=== PATIENT | female | born 1975 | race Caucasian/White ===

== ENCOUNTER 2016-10-18 15:32 | Inpatient (IN) | payer MEDICARE ==
[~2016-10-18] VITALS: Ht 167.6 cm; Wt 85.7 kg
[2016-10-18 20:18] LABS: HEMOGLOBIN 13.2 gm/dl (12.3-15.3); RED BLOOD COUNT 4.25 M/UL (4.00-5.10); WHITE BLOOD COUNT 15.4 K/UL (4.5-11.0)
[2016-10-18 20:34] LABS: BUN/CREATININE RATIO 10 (0-10)
[2016-10-19] MEDS ORDERED: IBUPROFEN800 MG PO (11:22)
[2016-10-19] MEDS ORDERED: BUPRENORPHIN-N1 EACH SL (11:22)
[2016-10-19] MEDS ORDERED: VISTARIL 50 MG50 MG PO (11:23)
[2016-10-19] MEDS ORDERED: NEURONTIN 400400 MG PO (11:23)
[2016-10-19] MEDS ORDERED: CYMBALTA 30 MG30 MG PO (11:29)
[2016-10-19] MEDS ORDERED: CLARITIN 10MG T10 MG PO (11:29)
[2016-10-19] MEDS ORDERED: CYMBALTA30 MG PO (11:29)
[2016-10-19] MEDS ORDERED: AMOXICILLIN500 MG PO (11:30)
[2016-10-20 08:57] LABS: BUN/CREATININE RATIO 18 (0-10)
[2016-10-21 05:37] LABS: HEMOGLOBIN 11.9 gm/dl (12.3-15.3); RED BLOOD COUNT 3.9 M/UL (4.00-5.10)
[2016-10-21 05:38] LABS: WHITE BLOOD COUNT 6.9 K/UL (4.5-11.0)
[2016-10-21 06:02] LABS: BUN/CREATININE RATIO 17 (0-10)
[2016-10-21] MEDS ORDERED: DOXYCYCLINE HY100 MG PO (16:03)
[2017-02-14] MEDS ORDERED: FERROUS SULFAT325 M2 PO (12:12)
[2017-02-14] MEDS ORDERED: CLEOCIN HCL300 MG PO (12:13)
[2017-02-14] MEDS ORDERED: ACIDOPHILUS LACT1 GM MC (12:14)
== END 2016-10-21 17:30 | disposition home or self-care (01) | DRG 571 ==
LOC: ER1 15:32 → ZEROF 22:14 → MED SURG 4 10-19 14:38
PROVIDERS: Hospitalist; Orthopaedic Surgery; Student in an Organized Health Care Education/Training Program; ADMIT Internal Medicine
PROC: 0JBG0ZZ Excision of Right Lower Arm Subcutaneous Tissue and Fascia, Open Approach (ICD-10-PCS; principal; 2016-10-19 17:30)
DX: L02.413 Cutaneous abscess of right upper limb (principal); I96 Gangrene, not elsewhere classified; L03.113 Cellulitis of right upper limb; F15.10 Other stimulant abuse, uncomplicated; F19.10 Other psychoactive substance abuse, uncomplicated; F41.9 Anxiety disorder, unspecified; Z88.6 Allergy status to analgesic agent; Z88.8 Allergy status to other drugs, medicaments and biological substances; Z79.2 Long term (current) use of antibiotics; Z79.1 Long term (current) use of non-steroidal anti-inflammatories (NSAID); Z79.891 Long term (current) use of opiate analgesic; Z79.899 Other long term (current) drug therapy
CPT/HCPCS: 36415; 73080; 80048; 80053; 80202; 81001; 83605; 84703; 85025; 85027; 86140; 87040; 87070; 87086; 87205; 96365; 96375; 96376; 99284; J1335; J1885; J2250; J2270; J3010; J3370; J7050; J7070; J7120; Q0177

== ENCOUNTER 2020-04-29 02:12 | Emergency (ER) | payer OTHER ==
[~2020-04-29 02:12] MED LIST: ACIDOPHILUS LACT1 GM MC; AMOXICILLIN500 MG PO; AUGMENTIN 875-1 EACH PO; BACTROBAN OINT22 GM EXT; BUPRENORPHIN-N1 EACH SL; CATAPRES 0.1MG0.1 MG PO; CELEBREX100 MG PO; CELEBREX200 MG PO; CLARITIN 10MG T10 MG PO; CLEOCIN HCL300 MG PO; CYCLOBENZAPRINE5 MG PO; CYMBALTA 30 MG30 MG PO; CYMBALTA30 MG PO; DOXYCYCLINE HY100 MG PO; FERROUS SULFAT325 M2 PO; IBUPROFEN600 MG PO; IBUPROFEN800 MG PO; LORTAB 5-325 M1 EACH PO; MEDROL4 MG PO; NEURONTIN800 MG PO; PERCOCET 5/325 T1 EA PO; PRINIVIL10 MG PO; PROTONIX40 MG PO; PROVENTIL HFA6.7 GM INH; PROZAC40 MG PO; REMERON45 M1 PO; VIBRAMYCIN100 MG PO; VISTARIL 50 MG50 MG PO
[2020-04-29] MEDS ORDERED: ENDOCET 5-3251 EACH PO (03:10)
== END 2020-04-29 03:35 | disposition home or self-care (01) ==
LOC: ER1 02:12
DX: M47.816 Spondylosis without myelopathy or radiculopathy, lumbar region (principal)
CPT/HCPCS: 99283

== ENCOUNTER 2020-05-13 20:46 | Emergency (ER) | payer OTHER ==
[~2020-05-13 20:46] MED LIST changes: +ENDOCET 5-3251 EACH PO
== END 2020-05-14 01:15 | disposition home or self-care (01) ==
LOC: ER1 20:46
DX: M25.552 Pain in left hip (principal); M54.5 Low back pain; F17.200 Nicotine dependence, unspecified, uncomplicated; Z86.19 Personal history of other infectious and parasitic diseases
CPT/HCPCS: 96372; 99283; J2270; J2550

== ENCOUNTER 2020-05-20 11:40 | Emergency (ER) | payer OTHER ==
[2020-05-20] MEDS ORDERED: CYCLOBENZAPRINE10 MG PO (12:53)
[2020-05-20] MEDS ORDERED: PREDNISONE50 MG PO (12:53)
== END 2020-05-20 13:40 | disposition home or self-care (01) ==
LOC: ER1 11:40
DX: M54.42 Lumbago with sciatica, left side (principal); J44.9 Chronic obstructive pulmonary disease, unspecified; F17.200 Nicotine dependence, unspecified, uncomplicated; Z86.19 Personal history of other infectious and parasitic diseases
CPT/HCPCS: 96372; 99283; J1100; J1885

== ENCOUNTER 2020-05-21 17:09 | Emergency (ER) | payer OTHER ==
[~2020-05-21 17:09] MED LIST changes: -NORFLEX 100 MG100 MG PO; -TORADOL 10 MG T10 MG PO
[2020-05-21 18:46] LABS: RED BLOOD COUNT 4.11 M/UL (4.00-5.10); WHITE BLOOD COUNT 20.4 K/UL (4.5-11.0)
[2020-05-21 18:59] LABS: BUN/CREATININE RATIO 25 (0-10)
== END 2020-05-22 11:38 | disposition short-term general hospital (02) ==
LOC: ER1 17:09
PROVIDERS: Nurse Practitioner
DX: M47.816 Spondylosis without myelopathy or radiculopathy, lumbar region (principal); F19.90 Other psychoactive substance use, unspecified, uncomplicated; I10 Essential (primary) hypertension; J44.9 Chronic obstructive pulmonary disease, unspecified; Z79.899 Other long term (current) drug therapy; Z20.822 Contact with and (suspected) exposure to COVID-19
CPT/HCPCS: 80053; 80307; 81001; 83605; 84703; 85025; 85652; 86140; 87040; 87635; 96374; 96375; 96376; 99284; J2270; J2405

== ENCOUNTER → 2020-05-21 | Outpatient (CLI) | payer OTHER ==
[~2020-05-21] MED LIST changes: +CYCLOBENZAPRINE10 MG PO; +NORFLEX 100 MG100 MG PO; +PREDNISONE50 MG PO; +TORADOL 10 MG T10 MG PO
== END ==
LOC: EMI 10:00
DX: M54.16 Radiculopathy, lumbar region (principal); M43.8X6 Other specified deforming dorsopathies, lumbar region; M43.8X4 Other specified deforming dorsopathies, thoracic region; R93.7 Abnormal findings on diagnostic imaging of other parts of musculoskeletal system
CPT/HCPCS: 72148

== ENCOUNTER → 2020-06-12 | Outpatient (CLI) | payer OTHER ==
[~2020-06-12] MED LIST changes: +NORFLEX 100 MG100 MG PO; +TORADOL 10 MG T10 MG PO
[2020-06-12 17:35] LABS: BUN/CREATININE RATIO 24 (0-10)
== END ==
LOC: LAB 16:13
PROVIDERS: Internal Medicine Infectious Disease
DX: G06.1 Intraspinal abscess and granuloma (principal); M46.35 Infection of intervertebral disc (pyogenic), thoracolumbar region; B37.89 Other sites of candidiasis; D72.823 Leukemoid reaction
CPT/HCPCS: 80053; 82550; 86140

== ENCOUNTER 2020-06-19 18:02 | Emergency (ER) | payer OTHER ==
[~2020-06-19 18:02] MED LIST changes: -NORFLEX 100 MG100 MG PO; -TORADOL 10 MG T10 MG PO
== END 2020-06-19 21:40 | disposition left against medical advice (07) ==
LOC: ER1 18:02
DX: M54.9 Dorsalgia, unspecified (principal); Z53.21 Procedure and treatment not carried out due to patient leaving prior to being seen by health care provider

== ENCOUNTER → 2020-06-19 | Outpatient (CLI) | payer OTHER ==
[2020-06-19 18:35] LABS: HEMOGLOBIN 11.1 gm/dl (12.3-15.3); RED BLOOD COUNT 4.14 M/UL (4.00-5.10); WHITE BLOOD COUNT 10.2 K/UL (4.5-11.0)
== END ==
LOC: LAB 17:20
DX: G06.1 Intraspinal abscess and granuloma (principal); M46.35 Infection of intervertebral disc (pyogenic), thoracolumbar region; B37.89 Other sites of candidiasis; D72.823 Leukemoid reaction
CPT/HCPCS: 85025; 85652

== ENCOUNTER → 2020-06-25 | Outpatient (CLI) | payer OTHER ==
[~2020-06-25] MED LIST changes: +NORFLEX 100 MG100 MG PO; +TORADOL 10 MG T10 MG PO
[2020-06-25 17:12] LABS: RED BLOOD COUNT 4.09 M/UL (4.00-5.10); WHITE BLOOD COUNT 12.4 K/UL (4.5-11.0)
[2020-06-25 17:24] LABS: BUN/CREATININE RATIO 19 (0-10)
== END ==
LOC: MRI 06-22 15:30
PROVIDERS: Internal Medicine Infectious Disease
DX: M46.46 Discitis, unspecified, lumbar region (principal); G06.1 Intraspinal abscess and granuloma; M46.36 Infection of intervertebral disc (pyogenic), lumbar region; M46.35 Infection of intervertebral disc (pyogenic), thoracolumbar region; M46.24 Osteomyelitis of vertebra, thoracic region; M46.26 Osteomyelitis of vertebra, lumbar region; B37.89 Other sites of candidiasis; D72.823 Leukemoid reaction; R74.8 Abnormal levels of other serum enzymes
CPT/HCPCS: 72158; 80053; 82550; 85025; 85652; 86140; A9577

== ENCOUNTER 2020-07-30 21:09 | Emergency (ER) | payer OTHER ==
[~2020-07-30 21:09] MED LIST changes: -NORFLEX 100 MG100 MG PO; -TORADOL 10 MG T10 MG PO
[2020-07-30 23:31] LABS: BUN/CREATININE RATIO 20 (0-10)
== END 2020-07-30 22:47 | disposition home or self-care (01) ==
LOC: ER1 21:09
PROVIDERS: Internal Medicine
DX: M46.46 Discitis, unspecified, lumbar region (principal); F17.210 Nicotine dependence, cigarettes, uncomplicated
CPT/HCPCS: 80053; 96372; 99283; J1885

== ENCOUNTER → 2020-09-15 | Outpatient (CLI) | payer OTHER ==
[~2020-09-15] MED LIST changes: +NORFLEX 100 MG100 MG PO; +TORADOL 10 MG T10 MG PO
[2020-09-15 17:32] LABS: HEMOGLOBIN 12.6 gm/dl (12.3-15.3); RED BLOOD COUNT 4.75 M/UL (4.00-5.10); WHITE BLOOD COUNT 8.8 K/UL (4.5-11.0)
[2020-09-15 17:56] LABS: BUN/CREATININE RATIO 16 (0-10)
== END ==
LOC: RAD 16:47
PROVIDERS: Internal Medicine Infectious Disease
DX: G06.1 Intraspinal abscess and granuloma (principal); M46.35 Infection of intervertebral disc (pyogenic), thoracolumbar region; B37.89 Other sites of candidiasis; D72.823 Leukemoid reaction; D63.8 Anemia in other chronic diseases classified elsewhere; J44.9 Chronic obstructive pulmonary disease, unspecified; E66.09 Other obesity due to excess calories
CPT/HCPCS: 72100; 80053; 85025; 85652; 86140

== ENCOUNTER 2020-09-25 16:51 | Emergency (ER) | payer OTHER ==
[~2020-09-25 16:51] MED LIST changes: -NORFLEX 100 MG100 MG PO; -TORADOL 10 MG T10 MG PO
[2020-09-25 20:50] LABS: HEMOGLOBIN 12.2 gm/dl (12.3-15.3); RED BLOOD COUNT 4.6 M/UL (4.00-5.10)
[2020-09-25 21:13] LABS: BUN/CREATININE RATIO 21 (0-10)
[2020-09-25] MEDS ORDERED: TORADOL 10 MG T10 MG PO (21:48)
[2020-09-25] MEDS ORDERED: NORFLEX 100 MG100 MG PO (21:48)
== END 2020-09-25 21:57 | disposition home or self-care (01) ==
LOC: ER1 16:51
PROVIDERS: Physician Assistant Medical
DX: M46.46 Discitis, unspecified, lumbar region (principal); J44.9 Chronic obstructive pulmonary disease, unspecified; F17.210 Nicotine dependence, cigarettes, uncomplicated; Z79.01 Long term (current) use of anticoagulants; Z79.899 Other long term (current) drug therapy
CPT/HCPCS: 36415; 80053; 81001; 85025; 86140; 96372; 99284; J1885

== ENCOUNTER 2020-12-14 17:18 | Emergency (ER) | payer OTHER ==
[~2020-12-14 17:18] MED LIST changes: +NORFLEX 100 MG100 MG PO; +TORADOL 10 MG T10 MG PO
== END 2020-12-14 19:54 | disposition left against medical advice (07) ==
LOC: ER1 17:18
DX: Z53.21 Procedure and treatment not carried out due to patient leaving prior to being seen by health care provider (principal)

== ENCOUNTER → 2022-01-25 | Outpatient (CLI) | payer OTHER ==
[2022-01-25 18:43] LABS: HEMOGLOBIN 9.4 gm/dl (12.3-15.3); RED BLOOD COUNT 3.27 M/UL (4.00-5.10); WHITE BLOOD COUNT 12.8 K/UL (4.5-11.0)
== END ==
LOC: LAB 17:39
PROVIDERS: Family Medicine
DX: E11.9 Type 2 diabetes mellitus without complications (principal); M19.90 Unspecified osteoarthritis, unspecified site; I10 Essential (primary) hypertension; E03.9 Hypothyroidism, unspecified; M25.50 Pain in unspecified joint; Z00.00 Encounter for general adult medical examination without abnormal findings; Z79.899 Other long term (current) drug therapy
CPT/HCPCS: 80053; 80061; 80074; 82150; 83036; 83690; 84443; 84550; 85027; 85652; 86038